=== PATIENT | male | born 1995 | race Two or more races ===

== ENCOUNTER 2017-12-05 06:02 | Day surgery (SDC) | payer BC ==
[2017-12-04 13:17] LABS: INR 1.08 (0.9-1.15); Partial Thromboplastin Time 30.2 sec (23.78-33.04); Prothrombin Time 11.5 sec (9.27-12.13)
[~2017-12-05] VITALS: Ht 177.8 cm; Wt 70.3 kg
[~2017-12-05 06:02] MED LIST: BUPR100T14 PO
[2017-12-05] MEDS ORDERED: BUPIVACAINE HCL 50 ML ONE (07:23)
[2017-12-05] MEDS ORDERED: LIDOCAINE HCL (LOCAL ANESTH.) 0.5 % 50ML MDV IJ ONE (07:23)
[2017-12-05] MEDS ORDERED: BUPIVACAINE 0.25% INJ 50ML VIAL ONE (07:23)
[2017-12-05] MEDS ORDERED: ceFAZolin 1GM VL ONE (07:23)
[2017-12-05] MEDS ORDERED: ceFAZolin 1GM/50ML 100 ML IV ONE (07:24)
[2017-12-05] MEDS ORDERED: fentaNYL CITRATE 100 MCG/2 ML VL ONE (07:35)
[2017-12-05] MEDS ORDERED: MEPERIDINE HCL (50 MG/ML) 1 ML VIAL ONE (07:36)
[2017-12-05] MEDS ORDERED: MIDAZOLAM HCL 1MG/1ML-2 ML VIAL ONE (07:36)
[2017-12-05] MEDS ORDERED: PROPOFOL 10 MG/ML 20 ML IV ONE (07:41)
[2017-12-05] MEDS ORDERED: DEXAMETHASONE SOD PHOS 10MG/1ML VIAL INJ ONE (07:41)
[2017-12-05] MEDS ORDERED: ROCURONIUM 10MG/ML 10ML VIAL IV ONE (07:57)
[2017-12-05] MEDS ORDERED: LIDOCAINE 1% (LOCAL ANESTH.) PF 5ml SDV ONE (08:01)
[2017-12-05] MEDS ORDERED: LABETALOL HCL 5 MG/ML 4ML SYRINGE IV PRN (08:15)
[2017-12-05] MEDS ORDERED: HYDROmorphone HCL 2 MG/ML VL IV PRN (08:15)
[2017-12-05] MEDS ORDERED: MORPHINE SULF INJ 2 MG/ML SYRINGE 1ML IV PRN (08:15)
[2017-12-05] MEDS ORDERED: ONDANSETRON HCL 4 MG/2 ML VIAL IV ONE (08:15)
[2017-12-05] MEDS ORDERED: MIDAZOLAM HCL 1MG/1ML-2 ML VIAL IV PRN (08:15)
[2017-12-05] MEDS ORDERED: ePHEDrine SULFATE 50 MG/ML AMP IV PRN (08:15)
[2017-12-05] MEDS ORDERED: KETOROLAC TROMETH 30 MG/ML 1ML VIAL IV ONE (08:15)
[2017-12-05] MEDS ORDERED: PHENYLEPHRINE HCL 10 MG/ML VL ONE (08:16)
[2017-12-05] MEDS ORDERED: fentaNYL CITRATE 100 MCG/2 ML VL IV ONE (09:00)
[2017-12-05] MEDS ORDERED: KETOROLAC TROMETH 30 MG/ML 1ML VIAL ONE (09:45)
[2017-12-05] MEDS ORDERED: MORPHINE SULF INJ 2 MG/ML SYRINGE 1ML IV ONE (10:00)
[2017-12-05 11:10] VITALS: BP 124/88
== END 2017-12-05 11:30 | disposition home or self-care (01) ==
LOC: SUR 06:02
PROVIDERS: ATTEND Surgery
DX: K40.90 Unilateral inguinal hernia, without obstruction or gangrene, not specified as recurrent (principal); N43.3 Hydrocele, unspecified; Z82.49 Family history of ischemic heart disease and other diseases of the circulatory system; Z79.899 Other long term (current) drug therapy
CPT/HCPCS: 36415; 49650; 85610; 85730; 86850; 86900; 86901; J0690; J1100; J1885; J2175; J2250; J2370; J2704; J3010; J3490; C1781

== ENCOUNTER 2018-04-06 15:18 | Emergency (ER) | payer BC ==
[~2018-04-06] VITALS: Ht 170.2 cm; Wt 77.1 kg
[2018-04-06] MEDS ORDERED: ASPirin 81 mg TAB PO ONE (16:00)
[2018-04-06 16:12] LABS: Basophils # (auto) 0 uL; Eosinophils # (auto) 0.3 uL; Mean Corpuscular Hemoglobin 26.9 pg (28.0-32.0); Monocytes # (auto) 0.5 uL
[2018-04-06 16:16] LABS: Basophils % (auto) 0.7 % (0.0-2.0); Eosinophils % (auto) 4.4 % (0.0-7.0); Hematocrit 45.4 % (41.0-53.0); Hemoglobin 14.9 g/dL (13.5-17.5); Mean Corpuscular Hgb Conc. 32.8 g/dL (32.0-36.0); Mean Corpuscular Volume 81.9 fL (80.0-100.0); Monocytes % (auto) 8.2 % (0.0-12.0); Neutrophils # (auto) 3.5 uL; Neutrophils % (auto) 55.7 % (37.0-80.0); Nucleated Red Blood Cells % 0.2 %; Platelet Count (auto) 238 10^3/uL (140-450); Red Blood Cells 5.55 10^6/uL (4.5-5.90); Red Cell Distribution Width 14.6 % (11.8-14.3); White Blood Cell 6.3 10^3/uL (4.4-10.8)
[2018-04-06 16:22] LABS: Anion Gap 8 (5-15); BUN/Creatinine Ratio 14.4; Blood Urea Nitrogen 14 mg/dL (7-18); Calcium 8.7 mg/dL (8.5-10.1); Carbon Dioxide 27 mmol/L (21-32); Chloride 101 mmol/L (98-107); GFR African American 124 mL/min; GFR Non-African American 103 mL/min; Glucose 85 mg/dL (74-106); Potassium 3.8 mmol/L (3.5-5.1); Sodium 136 mmol/L (136-145)
[2018-04-06 16:27] LABS: Alanine Aminotransferase 80 U/L (16-61); Alkaline Phosphatase 91 U/L (45-117); Aspartate Aminotransferase 35 U/L (15-37); Bilirubin, Total 0.5 mg/dL (0.2-1.0); Total Protein 8.4 g/dL (6.4-8.2)
[2018-04-06 17:47] VITALS: BP 116/61
== END 2018-04-06 17:52 | disposition home or self-care (01) ==
LOC: ER 15:18
DX: R07.89 Other chest pain (principal)
CPT/HCPCS: 36415; 80053; 84484; 85025; 93005